=== PATIENT | male | born 1995 | race Caucasian/White ===

== ENCOUNTER 2016-12-24 03:46 | Observation (INO) | payer OTHER, BC ==
[~2016-12-24] VITALS: Ht 177.8 cm; Wt 95.9 kg
--- NOTE | ~2016-12-24 | DS ---
PATIENT'S NAME: LUL BURROUGHS [facility] AGE: 21 Y [address] ROOM: [id number] [place] [address] LOCATION: GPCU ADMIT DATE: 12/24/2016 Discharge Summary DISCHARGE DATE: 12/25/2016 FAMILY PHYSICIAN: Ruben Prakash MD ATTENDING PHYSICIAN: Brandon Freeman V CHIEF COMPLAINT: 1. Epigastric abdominal pain. 2. Tobacco dependence. 3. Substance abuse. HOSPITAL COURSE: This is a 21-year-old male admitted for evaluation of persistent epigastric abdominal pain that has been going on and off for about 5 years, but progressively worsening in the last couple of days. The patient was admitted and evaluated by GI and had an EGD done that showed gastritis as well as intestinal ulcer. Biopsies appeared to be done postprocedure and results of that are pending. At this time, the patient is tolerating p.o. intake well. Pain is well controlled. We will discharge the patient on PPI therapy indefinitely and have him follow up with GI and PCP in 1 week. DISPOSITION: Home. FOLLOWUP: PCP in 1 week. Less than 30 minutes were spent in discharge planning. MD ANGIE HAMPTON/eliane /[id number] d: 12/26/16 0724 t: 12/28/16 1822, DISCHARGE SUMMARY
--- NOTE | ~2016-12-24 | ER ---
PATIENT'S NAME: LUL BURROUGHS [facility] AGE: 21 Y [address] ROOM: [place] [address] LOCATION: GPCU ADMIT DATE: 12/24/2016 ER/Outpatient Report DISCHARGE DATE: 12/25/2016 FAMILY PHYSICIAN: Ruben Prakash MD ATTENDING PHYSICIAN: AMIRA MCGRAW V cORRECTED WORK TYPE 12/27/16 AO HISTORY OF PRESENT ILLNESS: I assumed care at shift change. He is a 21-year-old male with a history of hereditary angioedema. He also has a history of cholecystectomy with recurrent abdominal pain. The patient presents with abdominal pain today. PAST MEDICAL HISTORY: Reviewed. ALLERGIES: NO KNOWN DRUG ALLERGIES. CURRENT MEDICATIONS: 1. Zosyn he has received here. 2. GI cocktail. 3. Benadryl. 4. Morphine. 5. His current scheduled medications include an injection that he takes for his angioedema. SOCIAL HISTORY: The patient does drink "a 6-pack" on a weekend. MEDICAL PROBLEMS: Hereditary angioedema. PRIOR SURGERIES: Cholecystectomy. REVIEW OF SYSTEMS: All systems reviewed and negative other than what is noted in the HPI. PHYSICAL EXAMINATION: VITAL SIGNS: Height 5 feet 10 inches, weight 96.6 kg, blood pressure 133/62, pulse 75, respirations 16, temperature 97, and saturation is 93% on room air. GENERAL: A 21-year-old male, in moderate distress. HEENT: Unremarkable. LUNGS: Clear to auscultation. HEART: Regular rate and rhythm. ABDOMEN: Soft and nondistended. Tender to palpation in mid abdomen and right PATIENT'S NAME: LUL BURROUGHS [facility] AGE: 21 Y [address] ROOM: [address] [address] LOCATION: GPCU ADMIT DATE: 12/24/2016 ER/Outpatient Report DISCHARGE DATE: 12/25/2016 FAMILY PHYSICIAN: Ruben Prakash MD ATTENDING PHYSICIAN: AMIRA MCGRAW V upper quadrant. No rebound or guarding. LABORATORY DATA: Lactate 0.8. CT scan of the abdomen and pelvis with IV, but no oral contrast, reveals cholecystectomy. Small air within the anterior abdominal wall subcutaneous fat most consistent with an injection site. EKG: Nonspecific T- wave changes, nothing acute. Chemistry panel: AST elevated at 63 and ALT 117. Cardiac enzymes negative x1. White count elevated at 18.2. Amylase 97 and lipase 81. GGT elevated at 142. One-view chest x-ray: No acute process. Abdominal ultrasound: Surgically absent gallbladder. Otherwise, negative. IMPRESSION: 1. Recurrent abdominal pain. 2. Elevated white count. Concerns for cholangitis. PLAN: Admission per hospitalist with GI consultation. LINDA WINSTON MD CAR/modl /[id number] cORRECTED WORK TYPE 12/27/16 AO d: 12/24/16 1616 t: 12/28/16 1704, OUTPATIENT REPORT
--- NOTE | ~2016-12-24 | CON ---
[facility] 21 [facility] [address] ROOM: [place] [address] LOCATION: GPCU ADMIT DATE: 12/24/2016 Consultation DISCHARGE DATE: FAMILY PHYSICIAN: Ruben Prakash MD ATTENDING PHYSICIAN: AMIRA MCGRAW V DATE OF CONSULTATION: 12/24/2016 REFERRING PHYSICIAN: Bobby Mathis MD REFERRING PHYSICIAN: Amira Mcgraw MD CONSULTING PHYSICIAN: Bobby Mathis MD REASON FOR CONSULT: Abdominal pain. HISTORY OF PRESENT ILLNESS: The patient is a very pleasant, 21-year-old white male who presents to the emergency room today complaining of epigastric discomfort along with nausea and vomiting. He has had these symptoms for a long time. The symptoms typically consist of epigastric burning. This is followed by some sour taste in the mouth also. He also gets intermittent nausea in the morning along with occasional vomiting. He has not lost any weight. He has no history of hematemesis. He underwent a cholecystectomy in 2011, thinking this could be related to his symptoms; however, his symptoms failed to improve. Typically, these symptoms come on after a spicy, fatty meal. This also comes on after drinking. He did have a 6-pack last night. He does smoke one pack a day. He has never had any workup done. No endoscopy done. No history of weight loss. No anemia. PAST MEDICAL AND SURGICAL HISTORY: Significant for wisdom tooth extraction and cholecystectomy. He denies any history of anesthesia-related complications. He also has a history of hereditary angioedema. He takes intermittent medications for that; these are only p.r.n. He has had tonsillectomy also as a child. FAMILY HISTORY: There is no history of cancer in the family. His mother had hereditary angioedema. Father had sarcoidosis. Maternal grandfather had probably a heart attack. PSYCHOSOCIAL HISTORY: He is currently unemployed. He was working in the [employer] previously. He [facility] 21 Y [address] ROOM: [place] [address] LOCATION: GPCU ADMIT DATE: 12/24/2016 Consultation DISCHARGE DATE: FAMILY PHYSICIAN: Ruben Prakash MD ATTENDING PHYSICIAN: AMIRA MCGRAW V does have fairly heavy drinking over the weekends. Does smoke also. REVIEW OF SYSTEMS: A detailed 10-point review of system was done. It was found to be negative other than what is mentioned in the History of Present Illness and Past Medical History. ALLERGIES: NO KNOWN DRUG ALLERGIES. PHYSICAL EXAMINATION: GENERAL: Alert and awake, appears to be in no acute distress. He is going to have his meal just now. No pallor. No icterus. VITAL SIGNS: Temperature of 98.2, T-max of 99, pulse 53 per minute, respiratory rate 16, and blood pressure 138/60. NECK: No masses are felt. No thyromegaly is felt. HEAD AND ENT: Oral cavity is normal. Nasal passages are clear. Pupils equal, round, and reactive to light appropriately. CHEST: Clear to auscultation bilaterally. No wheezing or rhonchi. CARDIOVASCULAR: S1 and S2. Peripheral pulses are palpable and normal. ABDOMEN: Soft. There is mild epigastric tenderness. No rigidity, guarding, or rebound. No visceromegaly is felt. MUSCULOSKELETAL: No obvious injuries or deformities are seen. NEUROLOGIC: Grossly nonfocal. LABORATORY DATA: He had an MRCP done; this shows surgically absent gallbladder. Study is otherwise normal. No evidence of intraductal stones. He had a CT of the abdomen and pelvis done. It showed again surgically absent gallbladder. Otherwise, unremarkable. Chest x-ray was done, and it was again unremarkable. Ultrasound of the abdomen was done today and had surgically absent gallbladder. Otherwise, unremarkable. He had a drug screen done that was positive for cocaine and opiates. It was also cannabinoid positive. UA was unremarkable. Procalcitonin was low. Alcohol level was less than 0.010. Complete metabolic screen shows sodium 142, potassium 3.9, chloride is 110, bicarbonate is 20, BUN is 10, and creatinine 0.7. Albumin is 4.5. Total bilirubin 0.4. ALT of 117, AST is 63, and alkaline phosphatase is 58. Troponin-I is unremarkable or negative. Amylase is 97, which is above the upper limit of normal at 90; lipase is 81. Gamma GT 142. Complete blood count shows WBC 18.2, hemoglobin 16, hematocrit 46.1, and platelet count is 288. IMPRESSION: The patient has a history of excessive drinking overnight, now presenting with what appears to be worsening of his reflux symptoms. He does appear to have PATIENT'S NAME: LUL BURROUGHS [facility] AGE: 21 Y [address] ROOM: [id number] [place], [place] [address] LOCATION: [facility] ADMIT DATE: 12/24/2016 Consultation DISCHARGE DATE: FAMILY PHYSICIAN: Ruben Prakash MD ATTENDING PHYSICIAN: AMIRA MCGRAW V chronic gastroesophageal reflux disease. However, a note is also made of cocaine in his urine screen. I am wondering if this is also related to his drugs. He does have abnormal liver enzymes. I wonder if this overall picture is suggestive of alcoholism as well as longstanding gastroesophageal reflux disease. In view of this, I will be scheduling for an upper endoscopy tomorrow. The procedure of upper endoscopy was explained in detail to the patient. All risks including, but not limited to bleeding, perforation, and possible need for surgery were explained. The patient is also smoking heavily. He has been counseled to avoid smoking. He also probably will need some form of drug rehab. We will be happy to follow this patient along with you. MD LUCRECIA AVILA/eliane /[id number] d: 12/24/16 1635 t: 12/26/16 1555, CONSULTATION REPORT
--- NOTE | ~2016-12-24 | ER ---
PATIENT'S NAME: LUL BURROUGHS [facility] AGE: 21 Y [address] ROOM: [address] [place], [place] [address] LOCATION: GPCU ADMIT DATE: 12/24/2016 ER/Outpatient Report DISCHARGE DATE: FAMILY PHYSICIAN: Ruben Prakash MD ATTENDING PHYSICIAN: AMIRA MCGRAW V CHIEF COMPLAINT: Abdominal pain. HISTORY OF PRESENT ILLNESS: The patient was at a bar around 9 o'clock having some drinks when he developed abdominal pain. He ended up going home. The pain has been getting worse throughout the evening. He has had some vomiting with this. He has had some hepatobiliary issues in the past and he has a history of angioedema. He took his medications for the angioedema and that has not seemed to help. This is atypical presentation for his angioedema and he is not sure what is going on. That is why he came in this morning. He denies any significant fevers or chills associated with this. No other acute findings. PAST MEDICAL HISTORY: Documented on the record and have been reviewed by me. SOCIAL HISTORY: Documented on the record and have been reviewed by me. MEDICATIONS: Documented on the record and have been reviewed by me. ALLERGIES: DOCUMENTED ON THE RECORD AND HAVE BEEN REVIEWED BY ME. REVIEW OF SYSTEMS: All systems reviewed and negative except as noted in the HPI. PHYSICAL EXAMINATION: VITAL SIGNS: Blood pressure 133/62, pulse is 75, respiratory rate is 16, temperature 97.8, and SpO2 is 93% on room air. Pain is 9/10. GENERAL: Age-appropriate male. No obvious distress, in obvious pain. NEUROLOGIC: Awake and alert. GCS 15. No focal deficits. No asymmetry on exam. HEENT: Normocephalic, atraumatic. Eyes are PERRL. Oropharynx is clear. NECK: Supple. Trachea is midline. CHEST: Heart is regular in rate and rhythm. No murmurs. LUNGS: Clear to auscultation bilaterally with no rhonchi, wheezes, or rales. BACK: Nontender to palpation throughout. PATIENT'S NAME: LUL BURROUGHS [facility] AGE: 21 Y [address] ROOM: [facility] [place], [place] [address] LOCATION: GPCU ADMIT DATE: 12/24/2016 ER/Outpatient Report DISCHARGE DATE: FAMILY PHYSICIAN: Ruben Prakash MD ATTENDING PHYSICIAN: AMIRA MCGRAW V ABDOMEN: Notable for diffuse epigastric tenderness. No rebound or guarding. Negative Ferrari sign. EXTREMITIES: Warm and well perfused. No obvious abnormalities. SKIN: Warm, dry, and intact. LABS AND X-RAYS: CT scan of the abdomen is pending. Labs: Serum lactate 0.8. EKG is sinus rhythm with normal intervals and axis at a rate of 70. No ischemia and no dysrhythmia. Labs: CMS is notable for an AST of 63, ALT of 117, and a bilirubin of 0.4. GFR is greater than 60. Troponin I is below threshold. CBC: White count of 18.2 with 15.2 neutrophils. INR is 1.0. Amylase and lipase are 97 and 81 respectively with a GGT of 142. IMPRESSION: Abdominal pain with concern for possible early cholangitis. EMERGENCY DEPARTMENT COURSE: The patient was seen and evaluated as above. He was given a GI cocktail, Benadryl, and morphine for his discomfort. He did not have any significant improvement. CT scan was obtained based on his labs and abdominal pain presentation with leukocytosis and elevated transaminases and amylase. He remained, otherwise, stable. The handoff was given to Dr. Wilkinson at 0600 hours. PLAN: To follow up the CT scan and disposition accordingly. All questions were answered and transition of care occurred. MD AMERICO LEOS/eliane /[id number] d: 12/25/16 0553 t: 01/03/17 0903, OUTPATIENT REPORT
--- NOTE | ~2016-12-24 | HP ---
[facility] 21 Y [address] ROOM: [place] [id number] [facility] ADMIT DATE: 12/24/2016 History & Physical DISCHARGE DATE: FAMILY PHYSICIAN: Ruben Prakash MD ATTENDING PHYSICIAN: AMIRA MCGRAW V DATE OF SERVICE: CHIEF COMPLAINT: Abdominal pain. HISTORY OF PRESENT ILLNESS: The patient is a 21-year-old male with past medical history most significant for hereditary angioedema as well as past history of cholecystectomy with recurrent, daily mid abdominal/epigastric pain associated with nausea and vomiting. The patient presented to the ER overnight with recurrence of this pain. The pain is concentrated in the epigastric region without any significant radiation. It is associated with bilious vomiting. The patient does have a history of alcoholism and endorses drinking a six pack on weekends. He does endorse that his last drink was yesterday and he attributes this episode possibly to alcohol use. A workup in the ER revealed mildly elevated LFTs, leukocytosis, and an unremarkable CAT scan. REVIEW OF SYSTEMS: Negative for chest pain, palpitations, diaphoresis, syncope. All systems have been reviewed and are negative aside from pertinent positives mentioned above. PAST MEDICAL HISTORY: Significant for cholecystectomy, hereditary angioedema, alcoholism. CURRENT MEDICATIONS: Subcutaneous injection for episodes of angioedema. SOCIAL HISTORY: The patient endorses occasional alcohol use, "six pack on a weekend." He does smoke tobacco. He also endorses marijuana use. Explicitly denies other toxic habits. FAMILY HISTORY: Significant for hereditary angioedema in multiple members of the family. PHYSICAL EXAMINATION: VITAL SIGNS: Blood pressure 134/64, heart rate 50s to 70s and regular. Saturation 97%. Afebrile. Respirations are 16. PATIENT'S NAME: LUL BURROUGHS [facility] AGE: 21 Y [address] ROOM: [address] [address] LOCATION: GPCU ADMIT DATE: 12/24/2016 History & Physical DISCHARGE DATE: FAMILY PHYSICIAN: Ruben Prakash MD ATTENDING PHYSICIAN: AMIRA MCGRAW V GENERAL: Appears well-developed, well-nourished, young male, in more anxiety than in pain. NEUROLOGIC: Nonfocal. Eye exam shows pupils are reactive to light. LYMPHATIC: No cervical lymphadenopathy. ENDOCRINE: No thyromegaly. LUNGS: Clear to auscultation. HEART: Rate is regular with no appreciable murmurs, gallops, or rubs. GASTROINTESTINAL: Abdomen soft. Mild tenderness in the epigastric region. Normoactive bowel sounds. No guarding or rebound. GENITOURINARY: Reveals no costovertebral angle tenderness. VASCULAR: 2+ pedal pulses. MUSCULOSKELETAL: Unremarkable. PSYCHIATRIC: Reveals slight anxiety but preferred cognition and affect. SKIN: Warm and dry. LABORATORY DATA: Studies performed in the ER is a CAT scan which preliminarily was reported as unremarkable. Ultrasound results are still pending. Procalcitonin is negative. White count is 18.2. Alkaline phosphatase is 58, AST 67, ALT 117. Bilirubin is normal. Remainder of electrolytes is unremarkable. Salicylate and Tylenol are negative. ASSESSMENT AND PLAN: This is a 21-year-old male, who is being admitted with. 1. Abdominal pain. I discussed his past medical history with him and he said that he has never actually seen a specialist despite daily abdominal pain. He also denies having ever had an endoscopy. I discussed the case with the gastroenterology medical device sales consultant and we will order MRCP given LFT elevation. We will follow up the results of the ultrasound. We will track his transaminitis. Based on the results of the MRCP, an EGD will be planned. 2. As symptomatic support, we will provide the patient with PPIs and antiemetics as needed. We will stay away from opioids. 3. History of alcoholism. We will monitor for signs of withdrawal. 4. Additional management depend on clinical course. Time dedicated to this patient's encounter is 35 minutes. MD LALITHA RUTLEDGE/eliane PATIENT'S NAME: LUL BURROUGHS [facility] AGE: 21 Y [address] ROOM: [place] [address] LOCATION: GPCU ADMIT DATE: 12/24/2016 History & Physical DISCHARGE DATE: FAMILY PHYSICIAN: Ruben Prakash MD ATTENDING PHYSICIAN: AMIRA MCGRAW: 12/24/2016 13:34:04 /[id number] D: [id number] T: [id number] HISTORY & PHYSICAL
[2016-12-24 04:04] LABS: BASOPHIL # 0.1 K/uL (0.0-0.2); BASOPHIL % 0.3 %; EOSINOPHIL % 0.1 %; HEMATOCRIT 46.1 % (37.0-53.0); IMMATURE GRANULOCYTE # 0.1 K/uL (0.0-0.3); IMMATURE GRANULOCYTE % 0.5 %; LYMPHOCYTE # 1.4 K/uL (0.8-4.0); LYMPHOCYTE % 7.9 %; MCH 29.6 pg (27.0-34.0); MCHC 34.7 gm/dL (32.0-36.5); MCV 85.4 fl (83.0-98.0); MONOCYTE # 1.4 K/uL (0.0-1.0); MONOCYTE % 7.9 %; MPV 8.8 fl (9.4-12.4); NEUTROPHIL # (ANC) 15.2 K/uL (1.4-9.0); NEUTROPHIL % 83.3 %; NRBC % 0 /100WBC (0-0.00); PLATELET COUNT 288 K/uL (150-450); RDW-CV 12.3 % (11.9-14.6)
[2016-12-24 04:08] LABS: WBC 18.2 K/uL (4.0-11.0)
[2016-12-24 04:14] LABS: PROTIME 10.6 SECONDS (9.6-11.1); PTT 22 SECONDS (25-32)
[2016-12-24 04:26] LABS: ALBUMIN 4.5 gm/dL (3.5-5.0); ALK PHOS 58 IU/L (33-138); ANION GAP 15.9 (10.0-19.0); AST 63 IU/L (10-40); BLOOD UREA NITROGEN 10 mg/dL (6-24); CHLORIDE 110 mMol/L (96-110); CO2 20 mMol/L (22-32); CPK 270 IU/L (35-332); CREATININE 0.7 mg/dL (0.6-1.3); ESTIMATED GFR (MDRD EQUATION) > 60; MAGNESIUM 2.1 mg/dL (1.3-2.6); POTASSIUM 3.9 mMol/L (3.7-5.1); SODIUM 142 mMol/L (135-145); TOTAL BILIRUBIN 0.4 mg/dL (0.0-1.5); TOTAL PROTEIN 7.7 g/dL (6.0-8.4)
[2016-12-24 04:28] LABS: ALT 117 IU/L (12-78)
[2016-12-24 08:15] LABS: BILIRUBIN URINE NEGATIVE (NEGATIVE); BLOOD URINE 25 /UL (NEGATIVE); COLOR URINE YELLOW (YELLOW); GLUCOSE URINE NEGATIVE (NEGATIVE); KETONE URINE 50 mg/dL (NEGATIVE); LEUKOCYTES URINE NEGATIVE /UL (NEGATIVE); NITRITE URINE NEGATIVE (NEGATIVE); PH URINE 6.5 (4.0-8.0); PROTEIN URINE NEGATIVE (NEGATIVE); TURBIDITY URINE CLEAR (CLEAR); UROBILINOGEN URINE NORMAL (NORMAL)
[2016-12-24 08:23] LABS: BACTERIA URINE NEGATIVE (NEGATIVE); EPITHELIAL URINE RARE #/HPF (NEGATIVE); RBC URINE NEGATIVE #/HPF (NEGATIVE); WBC URINE RARE #/HPF (NEGATIVE)
--- NOTE | 2016-12-24 08:29 | NUR ---
ADMITTED TO ROOM FROM ER PER WHEEL CHAIR FOR COMPLAINTS OF EPIGASTRIC PAIN. PT STATES HE WENT TO THE BAR LAST NIGHT TO HAVE SOME DRINKS IN HONOR OF HIS FRIEND WHO DID THE NIGHT BEFORE IN AN MVA AFTER LEAVING THE BAR. HE STATES WHILE HE WAS DRINKING, HE STARTED TO HAVE EPIGASTRIC PAIN. STATES PAIN GOT WORSE AFTER HE WENT HOME SO HE CALLED HIS MOTHER TO PICK HIM UP AND TAKE HIM TO ER. PATIENT AND STATE THAT PATIENT HAD HIS GALLBLADDER OUT IN 2011 ADN THAT HE HAS VOMITED EVERY MORNING AFTER HE WAKES UP SINCE THEN. RIGHT UPPER ABDOMINAL AREA TENDER TO PALPATION. PT STATES HE ALSO HAS TO WATERY YELLOW STOOLS THIS MORNING. PT ORIENTED TO ROOM, SURROUNDINGS AND PLAN OF CARE.
[2016-12-24 08:34] LABS: BARBITURATE NEGATIVE (NEGATIVE); COCAINE POSITIVE (NEGATIVE)
[2016-12-24 08:36] LABS: AMPHETAMINE NEGATIVE (NEGATIVE); OPIATES POSITIVE (NEGATIVE)
[2016-12-24] MEDS ORDERED: BERINERT500 UNI1 IVP (15:43)
[2016-12-24] MEDS ORDERED: ACID CONTROL150 MG PO (15:58)
[2016-12-24] MEDS ORDERED: FIRAZYR30 MG/3 ML SUB-Q (15:58)
--- NOTE | 2016-12-24 17:20 | NUR ---
Significant Event: A/O X 3. RESTING IN BED AND UP IN ROOM. TENDER TO UPPER EPIGASTRIC AREA. DR. FELIZ (GI), SEEN, AND EGD PLANNED FOR A.M. IN ROOM. Follow up: R/B DONE. NEEDS PERMITS SIGNED.
[2016-12-25 04:30] LABS: BASOPHIL % 0.4 %; EOSINOPHIL # 0.1 K/uL (0.0-0.5); EOSINOPHIL % 0.8 %; HEMATOCRIT 42.2 % (37.0-53.0); HEMOGLOBIN 14.6 g/dL (12.0-17.0); IMMATURE GRANULOCYTE % 0.3 %; LYMPHOCYTE # 2.3 K/uL (0.8-4.0); MCH 29.8 pg (27.0-34.0); MCHC 34.6 gm/dL (32.0-36.5); MCV 86.1 fl (83.0-98.0); MONOCYTE % 13.4 %; MPV 9.3 fl (9.4-12.4); NEUTROPHIL % 54.1 %; NRBC % 0 /100WBC (0-0.00); PLATELET COUNT 252 K/uL (150-450); RDW-CV 12.3 % (11.9-14.6); WBC 7.5 K/uL (4.0-11.0)
--- NOTE | 2016-12-25 04:42 | NUR ---
Significant Event: PATIENT IS A/O X3. VSS. HR 40-60'S. SBP 110-130'S. AFEBRILE. 02 SATS IN UPPER 90'S ON RA. C/O PAIN TO ABDOMEN/EPIGASTRIC AREA. 50MG ULTRAM X1 AND MYLANTA X1 WITH RELIEF. LUNGS CLEAR THROUGHOUT. PATIENT UP AD VAMSI IN ROOM. APPEITITE DECREASED. VOIDS PER RESTROOM. IV TO LEFT FOREARM SLIGHTLY TENDER WITH D5 1/2 NS GOING AT 75ML/HR. IV HAS GOOD BLOOD RETURN. PATIENT HAS BEEN NPO SINCE MIDNIGHT. Follow up: EGD LATER IN MORNING. PERMITS NEED SIGNED.
[2016-12-25 04:49] LABS: ALBUMIN 3.8 gm/dL (3.5-5.0); ALK PHOS 52 IU/L (33-138); ALT 85 IU/L (12-78); ANION GAP 12.6 (10.0-19.0); AST 37 IU/L (10-40); BLOOD UREA NITROGEN 11 mg/dL (6-24); CALCIUM 8.7 mg/dL (8.5-10.5); CHLORIDE 108 mMol/L (96-110); CO2 25 mMol/L (22-32); CREATININE 0.8 mg/dL (0.6-1.3); ESTIMATED GFR (MDRD EQUATION) > 60; POTASSIUM 3.6 mMol/L (3.7-5.1); SODIUM 142 mMol/L (135-145); TOTAL PROTEIN 6.4 g/dL (6.0-8.4)
[2016-12-25 04:50] LABS: TOTAL BILIRUBIN 0.9 mg/dL (0.0-1.5)
--- NOTE | 2016-12-25 15:53 | NUR ---
Reviewed Anmol's chart, talked with CHAO Nicole and also with Dr. Isbell. It appears that Anmol lives at home with his in [place] and per Dr. Isbell, he is planning on dismissing him to home later today. CHAO Nicole tells me that he had an EGD this AM and there was nothing found with that, he is up moving around well and there is no concerns about him going home. I let her know that I would continue to follow and assist, but I wasn't planning on seeing him if they were going to dismiss him to home later today. Let her know to call me if Anmol or family would have any questions and I would be happy to come back and talk with them. Will continue to follow and assist. Plan home.
[2016-12-25] MEDS ORDERED: PROTONIX40 MG PO (18:04)
== END 2016-12-25 18:00 | disposition disaster alternative care site (69) ==
LOC: GMED 03:46 → GPCU 07:21
PROVIDERS: Emergency Medicine; Internal Medicine; ADMIT Internal Medicine
PROC: 0DB68ZX Excision of Stomach, Via Natural or Artificial Opening Endoscopic, Diagnostic (ICD-10-PCS; principal; 2016-12-25)
DX: K26.9 Duodenal ulcer, unspecified as acute or chronic, without hemorrhage or perforation (principal); K31.89 Other diseases of stomach and duodenum; K21.9 Gastro-esophageal reflux disease without esophagitis; F17.200 Nicotine dependence, unspecified, uncomplicated; F10.20 Alcohol dependence, uncomplicated; F12.90 Cannabis use, unspecified, uncomplicated; Z90.49 Acquired absence of other specified parts of digestive tract; Z98.890 Other specified postprocedural states
CPT/HCPCS: C9113; G0378; G0480; J1200; J2250; J2270; J2543; J7030; J7042; Q9967